=== PATIENT | male | born 1940 | race African-American/Black ===

== ENCOUNTER 2017-02-28 08:25 | Day surgery (SDC) | payer MEDICARE, BC ==
[~2017-02-28] VITALS: Ht 172.7 cm; Wt 76.2 kg
--- NOTE | ~2017-02-28 | EGD ---
EGD REPORT [facility] [address] [address] NAME: SAMM SIMS : [birth year] STATUS : [facility] PAT#: [id number] AGE: 76 ADM/REG DATE : 02/28/17 MR#: [id number] REPORT SERV DATE: 02/28/17 DICTATED BY: NEERAJ GORE DATE: 02/28/17 REPORT STATUS : Draft [facility]ANS[facility]: [facility] DATE: 02/28/17 Pulmonology Patient Name: Samm Sims Procedure Date: 02/28/2017 12:07 PM Date of : 1940 Attending MD: ERASMO GORE MD Procedure Date No Time: 02/28/2017 Procedure: EBUS Navigational Bronchoscopy Indications: RLL lung mass with locoregional adenopathy. Retroperitoneal adenopathy Providers: ERASMO GORE MD Referring MD: ALTA SUAREZ III Medicines: Lidocaine 2% 20 mL Complications: No immediate complications Procedure: Pre-Anesthesia Assessment: - ASA Grade Assessment: III - A patient with severe systemic disease. - A History and Physical has been performed. Patient meds and allergies have been reviewed. The risks and benefits of the procedure and the sedation options and risks were discussed with the patient. All questions were answered and informed consent was obtained. Patient identification and proposed procedure were verified prior to the procedure by the physician and the nurse in the pre-procedure area in the procedure room. Mental Status Examination: normal. Airway Examination: normal oropharyngeal airway. Respiratory Examination: poor air movement. CV Examination: normal and RRR, no murmurs, no S3 or S4. ASA Grade Assessment: III - A patient with severe systemic disease. After reviewing the risks and benefits, the patient was deemed in satisfactory condition to undergo the procedure. The anesthesia plan was to use general anesthesia. Immediately prior to administration of medications, the patient was re-assessed for adequacy to receive sedatives. The heart rate, respiratory rate, oxygen saturations, blood pressure, adequacy of pulmonary ventilation, and response to care were monitored throughout the procedure. The physical status of the patient was re-assessed after the procedure. After obtaining informed consent, the BF [id number] was introduced through the mouth, via the endotracheal tube (the patient was intubated for the procedure) and advanced to the tracheobronchial tree. the Bronchoscope was introduced through the mouth, via the endotracheal tube (the patient was intubated for the procedure) and EGD REPORT [address] [address] NAME: SAMM SIMS : [birth year] STATUS : REG [facility]#: [id number] AGE: 76 ADM/REG DATE : 02/28/17 MR#: [id number] REPORT SERV DATE: 02/28/17 DICTATED BY: NEERAJ GORE DATE: 02/28/17 REPORT STATUS : Draft TRANSCRIBED BY: [facility] DATE: 02/28/17 advanced to the tracheobronchial tree. The procedure was accomplished without difficulty. The patient tolerated the procedure well. The total duration of the procedure was 30 minutes. Findings: The endotracheal tube is in good position. The visualized portion of the trachea is of normal caliber. The javi is sharp. The tracheobronchial tree was examined to at least the first subsegmental level. Bronchial mucosa and anatomy are normal; there are no endobronchial lesions, and no secretions. EBUS TBNA of lymph node level 11L x 4 passes for cytology EBUS TBNA of lymph node level 4L x 4 passes for cytology EBUS TBNA of lymph node level 7 x 4 passes for cytology EBUS TBNA of lymph node level 4R x 4 passes for cytology EBUS TBNA of lymph node level 11R x 6 passes for cytology Using SuperDimension Edge catheter 180, peripheral probe EBUS 17s, and fluoroscopy, I performed the following biopsies: RLL mass like consolidation transbronchial needle aspirates x 6 passes for cytology RLL mass like consolidation transbronchial brush biopsies x 3 passes for cytology and cultures RLL mass like consolidation transbronchial forcep biopsies x 11 passes for histopathology and cultures Bronchoalveolar lavage was performed in the right lower lobe of the lung and sent for cell count, cytology, bacterial culture, viral smears \T\ culture, and fungal and AFB analysis. 180 mL of fluid were instilled. 30 mL were returned. The return was blood-tinged and cellular. Impression: Rapid On-Site Evaluation (HERRERA): Preliminary cytology is suggestive of a benign lesion (final results are pending). Recommendation: - Await test results. - Follow up in clinic. Attending Participation: I personally performed the entire procedure. ERASMO GORE MD 02/28/2017 2:04 PM This report has been signed electronically. Number of Addenda: 0 Note Initiated On: 02/28/2017 12:07 PM [address] [address]
--- NOTE | ~2017-02-28 | CN ---
Consultation Report [address] [place]. [address] NAME: SAMM SIMS : 44 STATUS : [facility]#: [id number] AGE: 76 ADM/REG DATE : 02/28/17 MR#: [id number] REPORT SERV DATE: 02/28/17 DICTATED BY: FOX GORE DATE: 02/28/17 REPORT STATUS : Draft TRANSCRIBED BY: MODL DATE: 02/28/17 CONSULTATION REPORT DATE OF CONSULTATION: Dear Dr. Ruvalcaba: Thank you for requesting my opinion regarding evaluation and management of Mr. Samm Sims's right lower lobe lung masslike consolidation, FDG avid mediastinal lymphadenopathy. The patient is a pleasant 76-year-old gentleman with a significant past medical history of prostate adenocarcinoma with a Sedrick score of 7, status post radical prostatectomy with a 4+ 3 equals 7 with positive margins on the left and right with local extension and seminal vesicle T3b disease, status post radiation with a rising PSA. The patient underwent a PET- CT scan on 01/24/2017, which demonstrated PET positive isotope for an FDG avid right lower lobe lung mass with the morphology of primary bronchogenic neoplasm with potential regional metastasis in the mediastinal lymph nodes. The patient also had positive retroperitoneal lymphadenopathy with question of recurrent adenocarcinoma of prostate versus distant metastatic disease from the right lower lobe lung mass. The patient states that he has had chronic shortness of breath, well localized to the chest, nonradiating with no significant alleviating or exacerbating factors. He has had associated severe cough that occurs mainly at night, well localized to the chest, nonradiating with no significant alleviating or exacerbating factors. REVIEW OF SYSTEMS: A detailed 14-point review of systems was completed. The patient firmly denies any recent hemoptysis, weight gain, weight loss, chest pain, palpitations, or aspiration event. PAST MEDICAL HISTORY: 1. Hypertension. 2. Arthritis. 3. Sleep apnea/CPAP. 4. Prostate cancer. See above. PAST SURGICAL HISTORY: 1. Status post radical prostatectomy in February of 2008. 2. Right inguinal hernia repair in 2001. 3. Left knee scope in 2006. 4. Colonoscopy in approximately 2012, performed by Dr. Li. SOCIAL HISTORY: The patient smoked sparsely in his youth almost 30 years ago, but does not have a history of regular tobacco abuse. He denies any significant history of alcohol or illicit drug abuse. 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 Consultation Report [facility] [address] [place]. [address] NAME: SAMM SIMS : 44 STATUS : [facility] PAT#: [id number] AGE: 76 ADM/REG DATE : 02/28/17 MR#: [id number] REPORT SERV DATE: 02/28/17 DICTATED BY: FOX GORE DATE: 02/28/17 REPORT STATUS : Draft TRANSCRIBED BY: NILDA DATE: 02/28/17 FAMILY HISTORY: Noncontributory. No history of lung cancer. ALLERGIES: LATEX. HOME MEDICATIONS: 1. Dulera 100/5 two puffs b.i.d. 2. Flonase two sprays each naris. 3. Zyrtec 10 mg p.o. q.a.m. 4. Exforge/hydrochlorothiazide 10/320/25 mg p.o. daily. PHYSICAL EXAMINATION: VITAL SIGNS: Reviewed and located in the paper chart. GENERAL: No acute distress. Able to communicate in full paragraphs at a time. HEENT: Edematous, puffy face. Posterior oropharynx is clear. NECK: No JVD. No LAD. Trachea midline. CARDIOVASCULAR: Regular rate and rhythm. S1 and S2 present. LUNGS: Clear to auscultation bilaterally, but slightly diminished at the right base. ABDOMEN: Nontender, nondistended, and soft. Positive bowel sounds. EXTREMITIES: No clubbing, cyanosis, or edema. SKIN: No new rashes, lesions, or ulcers. PSYCHIATRIC: Alert and oriented x3. Appropriate mood and affect. Appropriate insight and judgment. NEUROLOGIC: 5/5 strength in upper and lower extremities. Cranial nerves II through XII intact. Gait not tested. DTRs not performed. IMAGING PROCEDURE: PET-CT scan performed. A diagnostic PET-CT was personally reviewed by me and pushed to the [facility]. The patient's PET-CT scan dated on 01/13/2017 demonstrates an FDG avid right lower lobe lung mass and mediastinal lymphadenopathy. The patient also has a retroperitoneal lymphadenopathy that could be consistent with prostate cancer versus a primary bronchogenic metastatic disease with distant metastases. ASSESSMENT AND PLAN: Mr. Sims is an extremely pleasant, 76-year-old gentleman with a significant past medical history of prostate adenocarcinoma, [employer] score 7, status post radical prostatectomy in 2007, and radiation therapy with a rising PSA, and distant sparse smoking history who presents to [facility] with an abnormal PET-CT scan on 01/13/2017 demonstrating FDG avid right lower lobe lung lesion with mediastinal lymphadenopathy as well as FDG avid retroperitoneal adenopathy. The clinical and radiographic presentation are most concerning for primary bronchogenic carcinoma, although his sparse smoking history may signify metastatic adenocarcinoma from primary prostate or other form of metastatic disease or inflammatory lesion. At this point, Mr. Sims needs an appropriate diagnostic intervention. We discussed in detail including CT-guided needle biopsy, thoracic surgical biopsy, or EBUS and navigation bronchoscopy. After careful discussion of the risks, benefits, and alternatives to each of Consultation Report [address] [address] NAME: SAMM SIMS : 44 STATUS : [facility]#: [id number] AGE: 76 ADM/REG DATE : 02/28/17 MR#: [id number] REPORT SERV DATE: 02/28/17 DICTATED BY: FOX GROE DATE: 02/28/17 REPORT STATUS : Draft TRANSCRIBED BY: NILDA DATE: 02/28/17 these procedures, we agreed to proceed forward with EBUS and navigation bronchoscopy. The patient is aware that the procedure is associated with life-threatening lung collapse bleeding and even . RECOMMENDATIONS: A summary of my recommendations are as follows: 1. Proceed with EBUS and navigation bronchoscopy. 2. Further recommendations will be outlined in the operative report. Thank you for allowing me to participate in Mr. Samm Sims's care. MELIDA/NILDA Fox Gore M.D. / [id number] CC: Darlene Castaneda M.D.
[~2017-02-28 08:25] MED LIST: DULERA 100 MCG/13 GM INH; EXFORGE HC4 PO; EXFORGE HCT PO; FLONASE NAS; MULTIPLE VIT PO; ZYRTEC ALLGY10 MG PO; [UNRECOGNIZED DRUG - REMARK] PO
[2017-02-28 08:49] LABS: BASOPHILS 0.6 %; BASOPHILS ABSOLUTE 0.04 10/3/uL (0.0-0.16); EOSINOPHILS ABSOLUTE 0.59 10/3/uL (0.0-0.53); HEMATOCRIT 44.1 % (40.0-51.0); HEMOGLOBIN 14.7 g/dL (13.6-17.8); IMMATURE GRANULOCYTES 0.2 %; IMMATURE GRANULOCYTES ABSOLUTE 0.01 10/3/uL (0.0-0.11); LYMPHOCYTES 29.8 %; LYMPHOCYTES ABSOLUTE 1.95 10/3/uL (0.67-4.30); MEAN CORPUS HGB CONC 33.3 g/dL (32.0-36.0); MEAN CORPUSCULAR HEMOGLOB 30.2 pg (26.0-34.0); MEAN CORPUSCULAR VOLUME 90.7 fL (80-100); MEAN PLATELET VOLUME 10.4 fL (9.2-13.0); MONOCYTES 11.5 %; MONOCYTES ABSOLUTE 0.75 10/3/uL (0.21-1.20); NEUTROPHILS 48.9 %; NEUTROPHILS ABSOLUTE 3.21 10/3/uL (2.02-8.40); PLATELET COUNT 210 10/3/uL (150-400); RBC DISTRIBUTION WIDTH 13.6 % (12.0-16.0); RED CELL COUNT 4.86 10/6/uL (4.7-6.1); WHITE BLOOD CELLS 6.6 10/3/uL (4.5-10.5)
[2017-02-28 08:51] LABS: MANUAL DIFF NO %
[2017-02-28 08:56] LABS: PROTIME (NOT ORD) 13.2 SEC (12.0-14.5)
[2017-02-28 08:57] LABS: PARTIAL THROMBO TIME 30.4 SEC (22.5-37.2)
[2017-02-28 09:03] LABS: BUN (BLOOD UREA NITROGEN) 9 MG/DL (6-23); CALCIUM, SERUM 9.2 MG/DL (8.5-10.4); CHLORIDE, SERUM 106 MMOL/L (96-112); CO2 (CARBON DIOXIDE) 29 MMOL/L (24-34); CREATININE 0.83 MG/DL (0.70-1.30); GFR AFRICAN AMERICAN 100 ML/MIN (>=60); GFR NON AFRICAN AMERICAN 87 ML/MIN (>=60); GLUCOSE, SERUM 96 MG/DL (60-99); POTASSIUM, SERUM 3.9 MMOL/L (3.5-5.3); SODIUM, SERUM 140 MMOL/L (135-148)
[2017-02-28 18:40] LABS: BD FL LYMPH (NOT ORD) 8 %; BD FL SOURCE (NOT ORD) BAL; BF BASO (NOT OF) 1 %; BF LARGE MONONUCLEAR 40 %; BF TOTAL CELL CT (NOT ORD 161 /MM3; BODY FLUID EOS (NOT ORD) 25 %; BODY FLUID RBC (NOT ORD) 27000 /MM3; BODY FLUID SEG (NOT ORD) 26 %
== END 2017-02-28 17:36 | disposition home or self-care (01) ==
LOC: DMU 08:25
PROVIDERS: Anesthesiology; Internal Medicine
PROC: 07974ZX Drainage of Thorax Lymphatic, Percutaneous Endoscopic Approach, Diagnostic (ICD-10-PCS; principal; 2017-02-28 10:00)
PROC: BB4CZZZ Ultrasonography of Mediastinum (ICD-10-PCS; 2017-02-28 10:00)
PROC: 0B9F8ZX Drainage of Right Lower Lung Lobe, Via Natural or Artificial Opening Endoscopic, Diagnostic (ICD-10-PCS; 2017-02-28 10:00)
PROC: 8E0WXBF Computer Assisted Procedure of Trunk Region, With Fluoroscopy (ICD-10-PCS; 2017-02-28 10:00)
PROC: 0B968ZX Drainage of Right Lower Lobe Bronchus, Via Natural or Artificial Opening Endoscopic, Diagnostic (ICD-10-PCS; 2017-02-28 10:00)
DX: R59.0 Localized enlarged lymph nodes (principal); J98.4 Other disorders of lung; I10 Essential (primary) hypertension; J44.9 Chronic obstructive pulmonary disease, unspecified; G47.33 Obstructive sleep apnea (adult) (pediatric); Z91.040 Latex allergy status; Z79.51 Long term (current) use of inhaled steroids; Z79.899 Other long term (current) drug therapy
CPT/HCPCS: 71010; 80048; 85025; 85610; 85730; 87015; 87070; 87101; 87102; 87116; 87205; 88112; 88172; 88173; 88305; 88333; 89051; 93005; 94640; A9270-GY; C1769; J1200; J2405; J2710